=== PATIENT | female | born 1970 | race African-American/Black ===

== ENCOUNTER 2016-06-18 16:32 | Emergency (ER) | payer MEDICARE, MEDICAID ==
--- NOTE | 2016-06-18 16:58 | ER Document Report ---
ED Medical Screen (RME) - General Stated Complaint: VOMITING Time seen by provider: 16:55 Mode of Arrival: Ambulatory Information source: Patient Notes: 46-year-old female with history of new anemia due to menorrhagia is complaining of increased weakness and dizziness with an episode of vomiting today. She is pale. Her hemoglobin was 9 week and a half ago. Today she is complaining of epigastric abdominal pain. No black or red in stools. No history of GI bleed. TRAVEL OUTSIDE OF THE [place] IN LAST 30 DAYS: No - Related Data Allergies/Adverse Reactions: No Known Allergies Allergy (Unverified 08/12/14 17:32) Past Medical History Pulmonary Medical History: Reports: Hx Bronchitis Past Surgical History: Reports: Hx Orthopedic Surgery - right ankle - Immunizations Hx Diphtheria, Pertussis, Tetanus Vaccination: No Physical Exam - Vital signs Vitals: Temp Pulse Resp BP Pulse Ox 98.5 F 81 16 118/71 100 06/18/16 16:38 06/18/16 16:38 06/18/16 16:38 06/18/16 16:38 06/18/16 16:38 Course - Vital Signs Vital signs: Temp Pulse Resp BP Pulse Ox 98.5 F 81 16 118/71 100 06/18/16 16:38 06/18/16 16:38 06/18/16 16:38 06/18/16 16:38 06/18/16 16:38
[2016-06-18 17:25] LABS: HEMATOCRIT 26.2 % (36.0-47.0); HEMOGLOBIN 8.5 g/dL (12.0-15.5); HGB HCT DIFFERENCE -0.7; MEAN CORPUSCULAR HEMOGLOBIN 25.7 pg (27.0-33.4); MEAN CORPUSCULAR HGB CONC 32.5 g/dL (32.0-36.0); MEAN CORPUSCULAR VOLUME 79 fl (80-97); RED CELL DISTRIBUTION WIDTH 16.6 % (11.5-14.0); WHITE BLOOD COUNT 3.1 10^3/uL (4.0-10.5)
[2016-06-18 17:30] LABS: APPEARANCE,URINE SLIGHTLY-CLOUDY; BILIRUBIN,URINE NEGATIVE (NEGATIVE); GLUCOSE, URINE NEGATIVE (NEGATIVE); KETONES,URINE NEGATIVE (NEGATIVE); LEUKOCYTE ESTERASE,URINE TRACE (NEGATIVE); NITRITE,URINE POSITIVE (NEGATIVE); PROTEIN,URINE NEGATIVE (NEGATIVE); URINE SPECIFIC GRAVITY 1.016; UROBILINOGEN,URINE NEGATIVE mg/dL (<2.0)
[2016-06-18 17:47] LABS: ALANINE AMINOTRANSFERASE 37 U/L (9-52); ALBUMIN 3.9 g/dL (3.5-5.0); ALKALINE PHOSPHATASE 91 U/L (38-126); ANION GAP 13 (5-19); ASPARTATE AMINO TRANSFERASE 29 U/L (14-36); BILIRUBIN,DIRECT 0.2 mg/dL (0.0-0.4); BILIRUBIN,TOTAL 0.3 mg/dL (0.2-1.3); BLOOD UREA NITROGEN 17 mg/dL (7-20); CALCIUM 9.4 mg/dL (8.4-10.2); CARBON DIOXIDE 23 mmol/L (22-30); CHLORIDE 107 mmol/L (98-107); CREATININE RESULT 0.83 mg/dL (0.52-1.25); GLUCOSE 103 mg/dL (75-110); LIPASE 143.2 U/L (23-300); POTASSIUM 4.9 mmol/L (3.6-5.0); SODIUM 143.2 mmol/L (137-145); TOTAL PROTEIN 6.6 g/dL (6.3-8.2)
[2016-06-18 17:53] LABS: BASOPHILS % (MANUAL) 0 % (0-2); EOSINOPHILS % (MANUAL) 0 % (0-6); LYMPHOCYTES % (MANUAL) 5 % (13-45); TOTAL CELLS COUNTED 100
[2016-06-18 17:58] LABS: HYPOCHROMASIA SLIGHT; MICROCYTOSIS SLIGHT; OVALOCYTES SLIGHT; POIKILOCYTOSIS SLIGHT; POLYCHROMASIA SLIGHT; TARGET CELLS SLIGHT; TEAR DROP CELLS SLIGHT
[2016-06-18 17:59] LABS: ANISOCYTOSIS 1+
[2016-06-18] MEDS ORDERED: ONDANSETRON 4 MG TAB.RAPDIS PO ONE (19:51)
[2016-06-18] MEDS ORDERED: FAMOTIDINE 20 MG TABLET PO ONE (19:51)
[2016-06-18] MEDS ORDERED: SUCRALFATE 1 GM TABLET PO ONE (19:51)
--- NOTE | 2016-06-18 19:53 | ER Document Report ---
ED General - General Chief Complaint: Weakness Stated Complaint: VOMITING Time seen by provider: 19:45 Mode of Arrival: Ambulatory Notes: Patient is a 46-year-old female that comes emergency department for chief complaint of an episode of left upper quadrant pain and vomiting after eating fruit the sacroiliac. She also states that she has been feeling frequently lightheaded and weaker than usual. Patient was recently started on short-term oral contraceptive secondary to menorrhagia, she states that she had 6 weeks of very heavy vaginal bleeding, she had an ultrasound that showed an overgrown endometrial lining, she has a follow up with [facility] tomorrow. She states that 1.5 weeks ago her hemoglobin was 9. She has never had a transfusion before. Past medical history C-sections and previous treatment for hypertension. TRAVEL OUTSIDE OF THE [place] IN LAST 30 DAYS: No - Related Data Allergies/Adverse Reactions: No Known Allergies Allergy (Verified 06/18/16 16:57) Past Medical History - General Information source: Patient - Social History Smoking Status: Never Smoker Chew tobacco use (# tins/day): No Frequency of alcohol use: None Drug Abuse: None Lives with: Family Family History: None Patient has suicidal ideation: No Patient has homicidal ideation: No Pulmonary Medical History: Reports: Hx Bronchitis Renal/ Medical History: Denies: Hx Peritoneal Dialysis Past Surgical History: Reports: Hx Orthopedic Surgery - right ankle - Immunizations Hx Diphtheria, Pertussis, Tetanus Vaccination: No Review of Systems - Review of Systems Constitutional: No symptoms reported EENT: No symptoms reported Cardiovascular: See HPI Respiratory: No symptoms reported Gastrointestinal: See HPI Genitourinary: See HPI Female Genitourinary: See HPI Musculoskeletal: No symptoms reported Skin: No symptoms reported Hematologic/Lymphatic: No symptoms reported Neurological/Psychological: No symptoms reported Physical Exam - Vital signs Vitals: Temp Pulse Resp BP Pulse Ox 98.5 F 81 16 118/71 100 06/18/16 16:38 06/18/16 16:38 06/18/16 16:38 06/18/16 16:38 06/18/16 16:38 Interpretation: Normal - General General appearance: Appears well, Alert In distress: None - HEENT Head: Normocephalic, Atraumatic Eyes: Normal Conjunctiva: Normal Extraocular movements intact: Yes Eyelashes: Normal Pupils: PERRL Mucous membranes: Normal. No: Dry Pharynx: Normal Neck: Normal - Respiratory Respiratory status: No respiratory distress Chest status: Nontender Breath sounds: Normal Chest palpation: Normal - Cardiovascular Rhythm: Regular. No: Tachycardia Heart sounds: Normal auscultation, S1 appreciated, S2 appreciated Murmur: No - Abdominal Inspection: Normal Distension: No distension Bowel sounds: Normal Tenderness: Tender - Mild generalized tenderness slightly worse in the left upper quadrant, generally soft and benign abdomen with no rigidity or guarding Organomegaly: No organomegaly - Back Back: Normal, Nontender. No: Tender, CVA tenderness - Extremities General upper extremity: Normal inspection, Nontender, Normal color, Normal ROM , Normal temperature General lower extremity: Normal inspection, Nontender, Normal color, Normal ROM , Normal temperature, Normal weight bearing. No: Marilou's sign - Neurological Neuro grossly intact: Yes Cognition: Normal Orientation: AAOx4 Lena Coma Scale Eye Opening: Spontaneous Lena Coma Scale Verbal: Oriented Lena Coma Scale Motor: Obeys Commands Claudia Coma Scale Total: 15 Speech: Normal Cranial nerves: Normal Cerebellar coordination: Normal Motor strength normal: LUE, RUE, LLE, RLE Additional motor exam normals: Equal brim flexer Sensory: Normal - Psychological Associated symptoms: Normal affect, Normal mood - Skin Skin Temperature: Warm Skin Moisture: Dry Skin Color: Pale - Slightly pale in appearance Course - Re-evaluation Re-evalutation: Patient is slightly pale but well-appearing otherwise, alert, initially nauseated but after medications this resolved. Abdomen is very mild generalized tenderness with no guarding or rigidity, no CVA tenderness, no fever. Not tachycardic or hypotensive. CBC shows microcytic anemia with hemoglobin of 8.5, mild leukopenia. Chemistry generally unremarkable, urinalysis showing some suspected contamination of blood in the urine, however also shows nitrites, culture was placed. Discussed with patient, patient has a very close follow up with [facility], she states she feels good now, she be placed on iron, Keflex, symptomatic medications, discussed follow-up and return precautions, patient states understanding and agreement. - Vital Signs Vital signs: Temp Pulse Resp BP Pulse Ox 98.5 F 69 14 122/64 100 06/18/16 21:42 06/18/16 21:42 06/18/16 21:42 06/18/16 21:42 06/18/16 21:42 - Laboratory Result Diagrams: 06/18/16 17:15 06/18/16 17:15 Laboratory results interpreted by me: 06/18/16 06/18/16 17:15 17:15 WBC 3.1 L RBC 3.30 L Hgb 8.5 L Hct 26.2 L MCV 79 L MCH 25.7 L RDW 16.6 H Seg Neuts % (Manual) 85 H Lymphocytes % (Manual) 5 L Abs Lymphs (Manual) 0.2 L Urine Blood MODERATE H Urine Nitrite POSITIVE H Ur Leukocyte Esterase TRACE H Discharge - Discharge Clinical Impression: Lightheadedness Vomiting Qualifiers: Vomiting type: unspecified Vomiting Intractability: non-intractable Nausea presence: with nausea Qualified Code(s): R11.2 - Nausea with vomiting, unspecified Anemia Qualifiers: Anemia type: unspecified type Qualified Code(s): D64.9 - Anemia, unspecified Urinary tract infection Qualifiers: Urinary tract infection type: site unspecified Hematuria presence: with hematuria Qualified Code(s): N39.0 - Urinary tract infection, site not specified Disposition: HOME, SELF-CARE Additional Instructions: Your hemoglobin is 8.5, take iron as prescribed, follow-up closely with [facility] for additional management. Take Keflex antibiotic as directed for urinary tract infection. Take Zantac and Zofran as directed for vomiting/stomach upset. Return to emergency department for any concerning worsening symptoms of passing out, fever, uncontrolled vomiting, severe abdominal pain, etc. Prescriptions: Cephalexin Monohydrate [Keflex 500 mg Capsule] 500 mg PO BID #10 capsule Ferrous Sulfate [Iron] 325 mg PO BID #20 tablet Ondansetron [Zofran Odt 4 mg Tablet] 1 - 2 tab PO Q4H PRN #15 tab.rapdis PRN Reason: For Nausea/Vomiting Ranitidine HCl [Zantac 150 mg Tablet] 150 mg PO BID #20 tablet Forms: Return to Work Referrals: JEANNA ROUSSEAU I, [Primary Care Provider] - Follow up as needed
[2016-06-18] MEDS ORDERED: CEPHALEXIN 500 MG CAPSULE PO ONE (20:58)
[2016-06-18] MEDS ORDERED: ONDANSETRON ODT 4 MG TAB (6 TAB/DSPK) PO PRN (20:58)
[2016-06-18 22:08] VITALS: BP 122/64
== END 2016-06-18 21:45 | disposition home or self-care (01) ==
LOC: ER 16:32
DX: R42 Dizziness and giddiness (principal); R11.2 Nausea with vomiting, unspecified; D64.9 Anemia, unspecified; N39.0 Urinary tract infection, site not specified; R53.1 Weakness; R10.12 Left upper quadrant pain
CPT/HCPCS: 99284; 86900; 86901; 36415; 87086; 86850; 83690; 84703; 85025; 87088; 80053; 81001; 87186; A9270 ×5; S0119

== ENCOUNTER 2016-11-25 19:29 | Emergency (ER) | payer MEDICAID, MEDICARE ==
[2016-11-25 19:39] VITALS: BP 143/98
--- NOTE | 2016-11-25 20:10 | ER Document Report ---
HPI - HPI Pain Level: 5 Notes: Patient is 46-year-old female who presents the ED complaining of left jaw pain 2-3 days. Patient states that she was seen by her primary care provider last Friday and was diagnosed with an otitis externa and given Ciprodex drops. Patient is still utilizing those drops for the next 2 days. Patient states that the drops did help with some of her pain and resolved her ear issues. She still eating and drinking without any difficulties. Patient states that when she opens her mouth she does feel the pain in the left lower jaw though. She has been using ibuprofen with minimal relief. She denies any drug allergies or significant past medical history. Denies any illicit drug use. Patient has not noticed any abscess or discharge in her mouth. Denies any headache, fever, head injury, neck pain, URI, sore throat, chest pain, palpitations, syncope, cough, shortness of breath, wheeze, dyspnea, abdominal pain, nausea/vomiting/ diarrhea, or rash. - ROS Notes: REVIEW OF SYSTEMS: CONSTITUTIONAL : Denies fever, chills, or sweats. Denies recent illness. EENT: see hpi CARDIOVASCULAR: Denies chest pain. Denies palpitations or racing or irregular heart beat. Denies ankle edema. RESPIRATORY: Denies cough, cold, or chest congestion. Denies shortness of breath, difficulty breathing, or wheezing. GASTROINTESTINAL: Denies abdominal pain or distention. Denies nausea, vomiting , or diarrhea. Denies blood in vomitus, stools, or per rectum. Denies black, tarry stools. Denies constipation. GENITOURINARY: Denies difficulty urinating, painful urination, burning, frequency, blood in urine, or discharge. MUSCULOSKELETAL: Denies back or neck pain or stiffness. Denies joint pain or swelling. SKIN: Denies rash, lesions or sores. NEUROLOGICAL: Denies confusion or altered mental status. Denies passing out or loss of consciousness. Denies dizziness or lightheadedness. Denies headache. Denies weakness or paralysis or loss of use of either side. Denies problems with gait or speech. Denies sensory loss, numbness, or tingling. ALL OTHER SYSTEMS REVIEWED AND NEGATIVE. Dictation was performed using [employer] recognition software - DERM Skin Color: Normal Past Medical History - Social History Smoking Status: Unknown if Ever Smoked Frequency of alcohol use: None Drug Abuse: None Family History: None Patient has suicidal ideation: No Patient has homicidal ideation: No Pulmonary Medical History: Reports: Hx Bronchitis Renal/ Medical History: Denies: Hx Peritoneal Dialysis Past Surgical History: Reports: Hx Orthopedic Surgery - right ankle - Immunizations Hx Diphtheria, Pertussis, Tetanus Vaccination: No Vertical Provider Document - CONSTITUTIONAL Agree With Documented VS: Yes Notes: PHYSICAL EXAMINATION: GENERAL: Well-appearing, well-nourished and in no acute distress. HEAD: Atraumatic, normocephalic. EYES: Pupils equal round and reactive to light, extraocular movements intact, sclera anicteric, conjunctiva are normal. ENT: EAC clear b/l. TM's intact b/l without erythema, fluid, or perforation. Nares patent and without discharge. oropharynx clear without exudates. No tonsilar hypertrophy or erythema. Moist mucous membranes. No sinus tenderness. No facial swelling. Uvula midline. No palatine shift. No tongue protrusion. Mouth: Missing teeth. + tenderness to the left lower gum line. No obvious abscess or discharge. NECK: Normal range of motion, supple without lymphadenopathy. No rigidity/ meningismus. LUNGS: Breath sounds clear to auscultation bilaterally and equal. No wheezes rales or rhonchi. HEART: Regular rate and rhythm without murmurs, rubs, gallops. Extremities: No cyanosis, clubbing, or edema b/l. Peripheral pulses 2+. Capillary refill less than 3 seconds. NEUROLOGICAL: Cranial nerves grossly intact. Normal speech, normal gait. Normal sensory, motor exams PSYCH: Normal mood, normal affect. SKIN: Warm, Dry, normal turgor, no rashes or lesions noted. - INFECTION CONTROL TRAVEL OUTSIDE OF THE [place] IN LAST 30 DAYS: No - RESPIRATORY O2 Sat by Pulse Oximetry: 99 Course - Re-evaluation Re-evalutation: 11/25/16 20:10 Patient is an afebrile, well-hydrated, 46-year-old female who presents the ED with left lower jaw pain, suspect possible infection in the gum. Vitals are stable. PE otherwise unremarkable at this time. I will cover her with penicillin VK to take as directed. She may continue her Ciprodex drops for the next 2 days as previously directed. Low suspicion for any meningitis, sepsis, peritonsillar/pharyngeal abscess, respiratory compromise, Damien's, temporal arteritis, or other emergent systemic condition at this time. Patient is aware this condition can change from initial presentation and he needs to monitor symptoms closely. Conservative measures otherwise for symptoms. Call to schedule an appointment with a dentist for further evaluation and management. Recheck with your PCM this week as well. Return to the ED with any worsening/ concerning symptoms otherwise as reviewed in discharge. Patient is in agreement. - Vital Signs Vital signs: Temp Pulse Resp BP Pulse Ox 98.6 F 82 16 143/98 H 99 11/25/16 19:38 11/25/16 19:38 11/25/16 19:38 11/25/16 19:38 11/25/16 19:38 Discharge - Discharge Clinical Impression: Jaw pain, non-TMJ Condition: Stable Disposition: HOME, SELF-CARE Instructions: Ice Packs ([facility]) Additional Instructions: [place] and floss twice daily Maintain fluid intake Take antibiotics as directed Mouthwash, salt water gargles, peroxide rinse as needed Tylenol/ibuprofen as needed Recheck with PCM this week Call today/tomorrow and schedule an appointment with your dentist for further evaluation Return to the ED with any worsening symptoms and/or development of fever, headache, facial swelling, swelling of lips/tongue/throat, trouble swallowing, drooling, hoarseness, neck pain/stiffness, chest pain, palpitations, syncope, shortness of breath, trouble breathing, abdominal pain, n/v/d, numbness/tingling , or other worsening symptoms that are concerning to you. Prescriptions: Penicillin V Potassium [Penicillin Vk 500 mg Tablet] 500 mg PO BID #20 tablet Forms: Elevated Blood Pressure Referrals: [facility] [Provider Group] - Follow up as needed [facility] [Provider Group] - Follow up as needed
[2016-11-25] MEDS ORDERED: LIDOCAINE 2% VISCOUS SOLN 20 ML UDCUP PO ONE (20:33)
== END 2016-11-25 20:56 | disposition home or self-care (01) ==
LOC: ER 19:29
DX: R68.84 Jaw pain (principal); H60.90 Unspecified otitis externa, unspecified ear
CPT/HCPCS: 99283